=== PATIENT | male | born 1960 | race Caucasian/White ===

== ENCOUNTER 2018-07-02 03:06 | Emergency (ER) | payer OTHER ==
[~2018-07-02] VITALS: Ht 177.8 cm; Wt 93.0 kg
[2018-07-02 04:33] LABS: HEMOGLOBIN 14.4 gm/dL (14.0-18.0); MCH 29.5 pg (26.0-34.0); MCHC 34.4 g/dL (28.0-37.0); MCV 85.8 fL (80.0-100.0); RBC 4.89 mil/uL (4.50-6.00); WBC 8.4 thou/uL (4.0-11.0)
[2018-07-02 04:36] LABS: ANION GAP 14 mmol/L (7-16); BUN 13 mg/dL (7-18); CALCIUM 9.1 mg/dL (8.5-10.1); CHLORIDE 101 mmol/L (98-107); CO2 21 mmol/L (21-32); CREATININE 1.3 mg/dL (0.7-1.3); GLUCOSE 170 mg/dL (74-106); POTASSIUM 3.4 mmol/L (3.5-5.1); SODIUM 136 mmol/L (136-145)
[2018-07-02 04:46] LABS: LIPASE 107 U/L (73-393); SGOT 22 U/L (15-37); SGPT 34 U/L (30-65); TOTAL BILIRUBIN 0.5 mg/dL (<0.1-1.0); TOTAL PROTEIN 7.4 g/dL (6.4-8.2); TROPONIN-I <0.06 ng/mL (<0.06)
[2018-07-02 05:33] LABS: URINE BILIRUBIN NEGATIVE (Negative); URINE BLOOD NEGATIVE (Negative); URINE CLARITY CLEAR; URINE COLOR YELLOW; URINE GLUCOSE-RANDOM* NEGATIVE (Negative); URINE KETONES 1+ (Negative); URINE LEUKOCYTES-REFLEX NEGATIVE (Negative); URINE NITRITE-REFLEX NEGATIVE (Negative); URINE PROTEIN (DIPSTICK) NEGATIVE (Negative); URINE UROBILINOGEN 0.2 E.U./dl (0.2-1.0)
[2018-07-02 05:35] LABS: SSA (PROTEIN CONFIRMATORY) NEGATIVE (Negative)
[2018-07-02] MEDS ORDERED: NORCO 5-325 TA1 EACH PO (08:31)
[2018-07-02 08:37] VITALS: BP 131/84
--- NOTE | 2018-07-02 08:58 | EKG ---
[place] [address] [facility] [place] [address] ELECTROCARDIOGRAM REPORT Name: DAVIDSEBASTIAN Room #: DEP REJI Corea#: [id number] ������������������ Admission: 07/02/18 ������������������ Attend Phys: Discharge: 07/02/18 ������������������ Date of : 64 Report #: [id number] ����������������������������������������������������������������� [id number] THIS REPORT FOR: //name// [facility] ED Test Date: 2018-07-02 Test Time: 03:52:45 Pat Name: SEBASTIAN HERNANDEZ Department: Room: Gender: M Insurance And Benefits Clerk: [email or web address] : 1960 Requested By: Maricel Berman Order Number: [id number] MD: Kuldeep Reinoso Measurements Intervals [place] Rate: 61 P: -20 AL: 188 QRS: 96 QRSD: 89 T: 51 QT: 466 QTc: 470 Interpretive Statements Sinus rhythm Borderline right axis deviation No previous ECG available for comparison Electronically Signed On 07-02-2018 8:58:18 CDT by Kuldeep Reinoso [email or web address] ��������������������������������������������� <ELECTRONICALLY SIGNED> ���������������������������������������� By: Kuldeep Reinoso MD, [facility] ��������������������������������������������� 07/02/18 [id number] Kuldeep Reinoso MD, FACC /EPI
== END 2018-07-02 08:38 | disposition home or self-care (01) ==
LOC: ER 03:06
PROVIDERS: Student in an Organized Health Care Education/Training Program
DX: R91.1 Solitary pulmonary nodule (principal); R11.2 Nausea with vomiting, unspecified; R10.84 Generalized abdominal pain

== ENCOUNTER 2018-07-09 07:20 | Emergency (ER) | payer OTHER ==
[~2018-07-09] VITALS: Ht 177.8 cm; Wt 93.0 kg
[~2018-07-09 07:20] MED LIST: NORCO 5-325 TA1 EACH PO
[2018-07-09 08:01] LABS: ABSOLUTE NEUTROPHILS 7.2 thou/uL (1.4-8.2); BASOPHILS 0.8 % (0.0-2.0); EOSINOPHILS 0.8 % (0.0-3.0); HEMATOCRIT 42.5 % (42.0-52.0); HEMOGLOBIN 14.8 gm/dL (14.0-18.0); LYMPHOCYTES 17.1 % (24.0-44.0); MCH 29.9 pg (26.0-34.0); MCHC 34.8 g/dL (28.0-37.0); MCV 85.9 fL (80.0-100.0); MONOCYTES 7.9 % (1.0-8.0); PLATELET COUNT 248 thou/uL (150-400); POLYS 73.4 % (36.0-66.0); RBC 4.95 mil/uL (4.50-6.00); RDW 12.8 % (10.5-14.5); WBC 9.8 thou/uL (4.0-11.0)
[2018-07-09 08:16] LABS: CALCIUM 9.4 mg/dL (8.5-10.1); CREATININE 1.4 mg/dL (0.7-1.3); POTASSIUM 3.8 mmol/L (3.5-5.1)
[2018-07-09 08:22] LABS: ALBUMIN 4.2 g/dL (3.4-5.0); TOTAL BILIRUBIN 0.5 mg/dL (<0.1-1.0); TOTAL PROTEIN 7.8 g/dL (6.4-8.2)
[2018-07-09 09:32] LABS: URINE BILIRUBIN NEGATIVE (Negative); URINE BLOOD NEGATIVE (Negative); URINE CLARITY CLEAR; URINE COLOR YELLOW; URINE GLUCOSE-RANDOM* NEGATIVE (Negative); URINE KETONES 1+ (Negative); URINE LEUKOCYTES-REFLEX NEGATIVE (Negative); URINE NITRITE-REFLEX NEGATIVE (Negative); URINE PROTEIN (DIPSTICK) NEGATIVE (Negative); URINE SPECIFIC GRAVITY 1.015 (1.005-1.035); URINE UROBILINOGEN 0.2 E.U./dl (0.2-1.0)
[2018-07-09 09:45] LABS: SSA (PROTEIN CONFIRMATORY) NEGATIVE (Negative)
[2018-07-09] MEDS ORDERED: PROTONIX40 M1 PO (11:13)
[2018-07-09] MEDS ORDERED: CARAFATE 1 GM TA1 G1 PO (11:13)
[2018-07-09] MEDS ORDERED: ZOFRAN ODT4 MG PO (11:13)
[2018-07-09 11:15] VITALS: BP 125/68
== END 2018-07-09 11:15 | disposition home or self-care (01) ==
LOC: ER 07:20
PROVIDERS: Emergency Medicine
DX: R10.13 Epigastric pain (principal); R10.33 Periumbilical pain